=== PATIENT | male | born 1955 | race Hispanic/Latino ===

== ENCOUNTER → 2025-06-24 | Outpatient (CLI) | payer OTHER ==
--- NOTE | 2025-06-24 23:44 | HMCIMG ---
EXAMINATION: ULTRASOUND OF THE ABDOMEN WITH COLOR DOPPLER. CLINICAL HISTORY: Thrombocytopenia. COMPARISON: None. TECHNIQUE: Real-time grayscale ultrasound images of the abdomen. In addition, color Doppler is medically necessary to perform in order to evaluate vascularity and blood flow. FINDINGS: Liver: Normal in caliber, the right hepatic lobe measures 15.4 cm in the craniocaudal dimension. There is normal echogenicity of the hepatic parenchyma. There is no focal hepatic abnormality or intrahepatic biliary ductal dilatation. There is normal spectral Doppler of the main portal vein. Gallbladder: Within normal limits with normal wall thickness (0.22 cm). No hyperemia or pericholecystic free fluid. There is no cholelithiasis. There is sludge. Common bile duct is obscured by overlying bowel gas. Spleen is normal in caliber and measures 9.9 cm in craniocaudal dimension. No focal lesions. Pancreas: Obscured by overlying bowel gas. The kidneys are normal in caliber, the right kidney measures 9.8 x 6.0 x 5.8 cm and the left kidney measures 9.7 x 5.1 x 4.9 cm in craniocaudal, AP, and transverse dimensions respectively. There is normal renal cortical thickness, and cortical echogenicity. There is no renal calculus or hydronephrosis. The distal aorta is normal in caliber. The proximal and mid aorta is obscured by overlying bowel gas. Visualized aspects of the inferior vena cava are unremarkable. IMPRESSION: Gallbladder sludge. /Kelly
== END | disposition home or self-care (01) ==
LOC: RAH 09:05
PROVIDERS: ATTEND Internal Medicine Medical Oncology
DX: K82.8 Other specified diseases of gallbladder (principal); D69.6 Thrombocytopenia, unspecified
CPT/HCPCS: 76700

== ENCOUNTER → 2025-07-17 | Outpatient (CLI) | payer OTHER ==
--- NOTE | 2025-07-17 22:17 | HMCIMG ---
EXAM: US Scrotum CLINICAL HISTORY: Localized swelling, mass, and lump, unspecified TECHNIQUE: Real-time ultrasound of the scrotum performed with color Doppler and image documentation. COMPARISON: None provided. FINDINGS: RIGHT TESTICLE: Measures 3.9 ??? 2.1 ??? 2.8 cm. Homogeneous echotexture with normal color Doppler flow. No focal intratesticular mass or evidence of torsion. Two simple cysts are seen in the tunica albuginea, the larger measuring 7 ??? 5 ??? 6 mm and the smaller 4 ??? 4 mm. Right groin vessel measures 2 mm in diameter. LEFT TESTICLE: Measures 4.1 ??? 2.0 ??? 3.2 cm. Homogeneous echotexture with normal color Doppler flow. No focal intratesticular mass or evidence of torsion. Small simple cysts noted in the tunica albuginea, measuring up to 4 ??? 3 ??? 4 mm and 3 ??? 3 ??? 4 mm. A small cyst adjacent to the epididymal head measures 3 ??? 3 ??? 4 mm. EPIDIDYMIDES: Right epididymal head measures 6 mm; left epididymal head measures 5 mm. Both show normal echotexture and vascularity. SCROTUM: No hydrocele, varicocele, or extratesticular solid mass. IMPRESSION: * Small bilateral tunica albuginea cysts, benign in appearance. * Small left epididymal cyst. * No evidence of testicular torsion or intratesticular mass. * Radiologic???Clinical Correlation: Findings are benign; correlate clinically for tenderness or interval change. Follow-up ultrasound only if symptomatic or interval growth is suspected. /Bradley
== END | disposition home or self-care (01) ==
LOC: RAH 10:45
PROVIDERS: ATTEND Urology
DX: N50.3 Cyst of epididymis (principal); N43.40 Spermatocele of epididymis, unspecified; R22.30 Localized swelling, mass and lump, unspecified upper limb
CPT/HCPCS: 76870